=== PATIENT | male | born 2000 | race Caucasian/White ===

== ENCOUNTER 2022-08-07 13:27 | Emergency (ER) | payer OTHER, SELFPAY ==
[2022-08-07 13:28] VITALS: BP 118/70; PULSE 44; RESP 13; TEMP 35.8; O2SAT 99; BMI 21.2
--- NOTE | 2022-08-07 13:59 | EKG12_ITS ---
Test Reason : SYNCOPE Blood Pressure : / mmHG Vent. Rate : 042 BPM Atrial Rate : 042 BPM P-R Int : 174 ms QRS Dur : 102 ms QT Int : 440 ms P-R-T Axes : 057 076 070 degrees QTc Int : 367 ms Marked sinus bradycardia Early repolarization Abnormal ECG Confirmed by SALLY MEEK, SANDY ([id number]), editorial cartoonist BRIDGET MOREL ([id number]) on 08/09/2022 11:46:33 AM Referred By: Confirmed By:SANDY ZAVALA MD
[2022-08-07] MEDS: 0.9% Normal Saline 1,000 ML 1000 ML IV (14:13)
[2022-08-07 14:23] LABS: Absolute Lymphocyte Count 1.03 X10^3/uL (0.83-4.51); Absolute Neutrophil Count 2.8 X10^3/uL (2.0-7.7); Basophil# 0.01 X10^3/uL; Basophil% 0.2 % (0-1); Eosinophil# 0.01 X10^3/uL; Eosinophils% 0.2 % (0-5); Hematocrit 42.7 % (40-54); Hemoglobin 14.7 g/dL (13.0-16.5); Lymphocyte # 1.03 X10^3/ul (0.83-4.51); Lymphocyte % 24.6 % (19-41); Mean Corp Hgb Conc 34.4 g/dL (32-36); Mean Corpuscular Hgb 28.6 pg (27.0-32.0); Mean Corpuscular Volume 83.1 fL (80-94); Mean Platelet Vol. 9.4 fl (6.2-12.0); Monocyte# 0.38 X10^3/uL; Monocyte% 9.1 % (0-10); NRBC Flagged by Analyzer 0 % (0-5); Neutrophil # 2.75 X10^3/uL (2.7-7.7); Neutrophil % 65.7 % (47-70); Platelet Count 126 K/mm3 (150-450); RBC Distribution Width CV 11.9 % (11.6-14.6); RBC Distribution Width SD 36.4 fl (35.1-43.9); Red Blood Count 5.14 M/mm3 (4.6-6.2); White Blood Count 4.2 K/mm3 (4.4-11.0)
[2022-08-07 14:44] VITALS: BP 125/70; PULSE 45; RESP 16; O2SAT 100
[2022-08-07 14:44] LABS: Anion Gap 6 (5-15); BUN 13 mg/dL (7-18); BUN/Creat Ratio 18.6 RATIO (10-20); Calcium,Total 9.5 mg/dL (8.5-10.1); Chloride 107 mmol/L (98-107); EST Glomerular Filtration Rate 150 mL/min (>60); Est Glom Filt Rate - Afr Amer 182 mL/min (>60); Glucose 104 mg/dL (74-106); Sodium Level 141 mmol/L (136-145); Thyroid Stim Hormone (TSH) 1.55 uIU/mL (0.358-3.74); Troponin-I HS 5 pg/mL (3.0-78.0)
--- NOTE | 2022-08-07 15:12 | RAD_ITS ---
STUDY: X-RAY CHEST REASON FOR EXAM: Male, 21 years old. Syncope TECHNIQUE: Frontal and lateral views of the chest. COMPARISON: None. FINDINGS: The lungs are clear and expanded. There is no demonstrated pleural abnormality. Normal size heart. Normal mediastinum and naya. Normal visualized pulmonary arteries. Normal visualized aortic arch and descending thoracic aorta. Normal visualized thoracic spine. Normal visualized ribs, clavicles, and shoulders. There is no demonstrated abnormality of the visualized soft tissue structures of the upper abdomen. RAD/Chest PA and Lateral IMPRESSION: Normal x-ray examination of the chest. Electronically Signed: Precious Carty MD at 15:46 EDT ,
[2022-08-07 15:49] LABS: Amphetamine Urine VISTA NEGATIVE (<1000 ng/mL); Barbiturate Urine VISTA NEGATIVE (< 200 ng/mL); Benzodiazepine Urine VISTA NEGATIVE (< 200 ng/mL); Cocaine Urine VISTA NEGATIVE (< 300 ng/mL); Ecstacy Urine VISTA NEGATIVE (< 500 ng/mL); Methadone Urine VISTA NEGATIVE (< 300 ng/mL); PCP Urine VISTA NEGATIVE (< 25 ng/mL); THC Urine VISTA POSITIVE (< 50 ng/mL); Vista UDS pH Range 6
[2022-08-07 15:51] VITALS: BP 130/65; PULSE 53; RESP 16; O2SAT 98
[2022-08-07 15:53] VITALS: BP 122/83; BP 130/65; BP 132/79; PULSE 53; PULSE 62
--- NOTE | 2022-08-07 17:12 | EDS_ITS ---
HPI History of Present Illness Chief Complaint: Syncope Narrative Narrative: Patient is a 21-year-old male with remote history of syncope presenting after an episode of syncope at urgent care. Patient wondered to get his ear checked out. He has had a clogged sensation in his right ear for the past 4 to 5 days with decreased hearing. While he was in the office he had his blood pressure checked. He suddenly felt incredibly hot and then woke up with everybody looking over him. Apparently had 2 episodes of syncope. The second episode was when they try to set him up again. He felt dizzy at the time. Patient was bradycardic and sent to the ER for further evaluation. Patient currently denies any chest pain, shortness of breath or difficulty breathing. He feels fine but is worried he is going to pass out again. Denies any family history of any cardiac issues, syncope or at a young age. PFS PFS Medical History no medical history Home Medications NK 08/07/22 [History Last Taken Unknown] Allergy/AdvReac Type Severity Reaction Status Date / Time amoxicillin Allergy Rash Verified 08/07/22 13:28 Surgical History no surgical history Social History Smoking Status: Never smoker ROS ROS ED Constitutional Constitutional ED: Reports other Details: Syncope ; Denies chills or fever(s) ENT ENT ED: Reports other Details: Decreased hearing in right ear ; Denies ear pain, rhinorrhea or sore throat Cardiovascular Cardiovascular: Denies chest pain, palpitations or racing heartbeat Respiratory/Chest Respiratory/Chest: Denies cough or dyspnea Gastrointestinal Gastrointestinal: Denies abdominal pain, nausea or vomiting Musculoskeletal Musculoskeletal: Denies arthralgias or myalgias Integumentary Denies rash Neurologic Neurologic: Denies headache(s) or weakness Psychiatric Psychiatric: Denies anxiety or depression Hematologic/Lymphatic Hematologic/Lymphatic: Denies easy bleeding or easy bruising EXAM Physical Exam Const Vital Signs: 08/07/22 13:28 08/07/22 13:30 08/07/22 14:44 Temperature 96.5 F L Temperature Source Temporal Pulse Rate 44 L 45 L Pulse Rate [Lying] Pulse Rate [Standing (for 1 minute prior to obtaining)] Respiratory Rate 13 16 Respiratory Effort Normal Non-Labored Respiratory Pattern Normal Blood Pressure 118/70 125/70 H Blood Pressure [Lying] Blood Pressure [Sitting (for 1 minute prior to obtaining)] Blood Pressure [Standing (for 1 minute prior to obtaining)] Blood Pressure Mean 86 88 Blood Pressure Mean [Lying] Blood Pressure Mean [Sitting (for 1 minute prior to obtaining)] Blood Pressure Mean [Standing (for 1 minute prior to obtaining)] Pulse Ox 99 100 Oxygen Delivery Method Room Air Room Air 08/07/22 15:51 08/07/22 15:53 08/07/22 17:22 Temperature Temperature Source Pulse Rate 53 L 54 L Pulse Rate [Lying] 53 L Pulse Rate [Standing (for 1 minute prior to obtaining)] 62 Respiratory Rate 16 14 Respiratory Effort Respiratory Pattern Blood Pressure 130/65 H Blood Pressure [Lying] 130/65 H Blood Pressure [Sitting (for 1 minute prior to obtaining)] 122/83 H Blood Pressure [Standing (for 1 minute prior to obtaining)] 132/79 H Blood Pressure Mean 86 Blood Pressure Mean [Lying] 86 Blood Pressure Mean [Sitting (for 1 minute prior to obtaining)] 96 Blood Pressure Mean [Standing (for 1 minute prior to obtaining)] 96 Pulse Ox 98 98 Oxygen Delivery Method Room Air 08/07/22 17:23 Temperature Temperature Source Pulse Rate Pulse Rate [Lying] Pulse Rate [Standing (for 1 minute prior to obtaining)] Respiratory Rate Respiratory Effort Respiratory Pattern Blood Pressure Blood Pressure [Lying] Blood Pressure [Sitting (for 1 minute prior to obtaining)] Blood Pressure [Standing (for 1 minute prior to obtaining)] Blood Pressure Mean Blood Pressure Mean [Lying] Blood Pressure Mean [Sitting (for 1 minute prior to obtaining)] Blood Pressure Mean [Standing (for 1 minute prior to obtaining)] Pulse Ox 99 Oxygen Delivery Method Room Air Positive well nourished and well developed General Appearance ED: well developed and NAD HEENT Reports TM's clear and moist mucous membranes HEENT Narrative: Cerumen impaction of the right tympanic membrane Negative for trauma Tympanic Membrane ED: Yes TM's clear left Eyes PERRL and EOMs intact bilaterally Neck supple and no JVD Chest Wall inspection of chest normal and palpation of chest normal Resp normal respiratory effort and clear to auscultation bilaterally Cardio regular rhythm and no murmurs Rate: bradycardia GI normal to inspection, nondistended, normoactive bowel sounds and non-tender Back/Spine no CVA tenderness Extremity normal to inspection General Extremety ED: Negative for edema or tenderness General Extremity: Negative for edema Neuro oriented x3, CN's II-XII intact bilaterally and no sensory deficits noted Motor Exam: strength 5/5 throughout; Negative for general weakness Psych mental status grossly normal Mood & Affect: anxious Skin no rashes or lesions noted and no wounds MDM MDM MDM Narrative Medical decision making narrative: Patient evaluated after an episode of syncope at urgent care. He is bradycardic . His vital signs are otherwise normal. His orthostatics are negative. The syncopal episode itself sounds like a vasovagal episode. Patient is given IV fluids in the ER. CBC, BMP, troponin, TSH and urine drug are obtained. Remarkable only for positive cannabis in the urine. Two-view chest x-ray interpreted by myself as well as radiology does not show any acute process. EKG shows sinus bradycardia but no signs of block. Given that he is not hypotensive or currently symptomatic with his bradycardia I do not think that was the actual cause of his syncopal episode. Is given outpatient follow-up with cardiology for the bradycardia. Patient mother agreeable this plan of care. Patient does feel better after receiving IV fluids. Irrigation performed for cerumen impaction of the right ear with resolution of his hearing changes. Lab Data Labs: Laboratory Results - last 24 hr 08/07/22 08/07/22 08/07/22 14:15 14:15 15:20 WBC 4.2 L RBC 5.14 Hgb 14.7 Hct 42.7 MCV 83.1 MCH 28.6 MCHC 34.4 RDW Std Deviation 36.4 RDW Coeff of Karla 11.9 Plt Count 126 L MPV 9.4 Immature Gran % (Auto) 0.200 Neut % (Auto) 65.7 Lymph % (Auto) 24.6 [place] % (Auto) 9.1 Eos % (Auto) 0.2 Baso % (Auto) 0.2 Absolute Neuts (auto) 2.8 Absolute Lymphs (auto) 1.03 Nucleated RBC % 0 Sodium 141 Potassium 4.0 Chloride 107 Carbon Dioxide 28.0 Anion Gap 6 BUN 13 Creatinine 0.70 Estim Creat Clear Calc 158.90 Est GFR (MDRD) Af Amer 182 Est GFR (MDRD) Non-Af 150 BUN/Creatinine Ratio 18.6 Glucose 104 Calcium 9.5 Troponin I High Sens 5 TSH 1.55 Urine Opiates Screen NEGATIVE Urine Methadone Screen NEGATIVE Ur Barbiturates Screen NEGATIVE Ur Phencyclidine Scrn NEGATIVE Ur Amphetamines Screen NEGATIVE MDMA (Ecstasy) Screen NEGATIVE U Benzodiazepines Scrn NEGATIVE Urine Cocaine Screen NEGATIVE U Cannabinoids Screen POSITIVE H Ur Drug Screen Comment Radiography Chest X-Ray - ED: 2 View, Read by ED Physician, Read by Radiologist and No Acute Disease Diagnostic Testing: Clinical Impression(s) from Imaging Studies Chest X-Ray 08/07/22 15:12 IMPRESSION: Normal x-ray examination of the chest. Electronically Signed: Precious Carty MD at 15:46 EDT , Rhythm Strip Rhythm Strip: Sinus bradycardia Rate: 42 Ectopy: None EKG Initial EKG: Attestation: I personally reviewed and interpreted this EKG as follows: Interpretation: Sinus Bradycardia Comments: Sinus bradycardia rate of 42 bpm Normal axis Normal intervals Normal ST segments Early repolarization Discharge Plan Triage Chief Complaint: Syncope ED Provider: Soledad Alvarez Dx/Rx/DC Orders Clinical Impression: Syncope and collapse, Bradycardia, Cerumen impaction Instructions: ED Bradycardia, ED Fainting, Vagal Reaction Prescriptions: No Action NK Primary Care Provider: Care Physician,No Primary Referrals: Aquilino Donovan MD [Med Staff - Active Staff] - Care Physician,No Primary [Primary Care Provider] - Activity Restrictions/Additional Instructions: Drink lots of fluids. Disposition Disposition: Home, Self Care Discharge Date/Time: 08/07/22 17:23
[2022-08-07 17:22] VITALS: PULSE 54; RESP 14; O2SAT 98
[2022-08-07 17:23] VITALS: O2SAT 99
== END 2022-08-07 17:23 | disposition home or self-care (01) ==
PROVIDERS: Emergency Provider Emergency Medicine; Visit Provider Emergency Medicine
DX: R55 Syncope and collapse (principal); H61.20 Impacted cerumen, unspecified ear; R00.1 Bradycardia, unspecified
CPT/HCPCS: 71046; 80048; 80307; 84443; 84484; 85025; 93005; 96360; 96361; 99285; J7030; A4216

== ENCOUNTER → 2022-10-13 | Outpatient (CLI) | payer OTHER, SELFPAY ==
--- NOTE | 2022-10-13 07:55 | ECHOD_ITS ---
Reason For Study: SYNCOPE Procedure This was a 2D Doppler, Color Flow transthoracic echocardiogram. Exam performed in department. Left Ventricle Normal LV size. Left ventricular systolic function is normal. The estimated ejection fraction is 55 %. Normal diastology for age. No regional wall motion abnormalities noted. Right Ventricle Normal RV size. Normal systolic function. Atria Normal left atrium. Normal right atrium. Mitral Valve Normal mitral valve. Tricuspid Valve Normal tricuspid valve. Aortic Valve Trisinus/trileaflet aortic valve. Mild focal aortic valve thickening. Pulmonic Valve Normal pulmonic valve. Great Vessels Normal aortic root. The pulmonary artery is normal size. Normal inferior vena cava. Pericardium/Pleural No pericardial effusion. MMode/2D Measurements & Calculations LVIDd: 5.0 cm IVSd: 0.52 cm LAV(MOD-bp): 64.3 ml LVIDs: 4.0 cm LVPWd: 0.72 cm LAV(MOD-bp) Indexed: 35.8 ml/m2 RVDd: 2.8 cm FS: 19.8 % LAV(MOD-sp2): 60.3 ml LAV(MOD-sp4): 52.8 ml SV(MOD-sp4): 63.1 ml SV(sp4-el): 67.5 ml LVAd ap4: 35.4 cm2 LVLd ap4: 8.9 cm EDV(MOD-sp4): 115.4 ml EDV(sp4-el): 119.1 ml LVAs ap4: 20.8 cm2 LVLs ap4: 7.1 cm ESV(MOD-sp4): 52.3 ml ESV(sp4-el): 51.6 ml EF(MOD-sp4): 54.7 % EF(sp4-el): 56.6 % LA A4 area: 19.8 cm2 LA dimension(2D): 3.4 cm RA A4 area: 11.6 cm2 Time Measurements MV dec time: 0.20 sec Doppler Measurements & Calculations MV E max juan: 93.8 cm/sec Lat Peak E' Juan: 21.8 cm/sec Med Peak E' Juan: 17.3 cm/sec MV A max juan: 40.7 cm/sec E/E' lat: 4.3 E/E' med: 5.4 MV E/A: 2.3 MV V2 max: 97.0 cm/sec MV dec slope: 498.6 cm/sec2 Ao V2 max: 123.0 cm/sec MV max P.8 mmHg Ao max P.1 mmHg MV V2 mean: 46.6 cm/sec Ao V2 mean: 88.6 cm/sec MV mean P.2 mmHg Ao mean P.5 mmHg MV V2 VTI: 33.0 cm Ao V2 VTI: 26.5 cm AV (velocity ratio): 0.80 LV V1 max: 98.9 cm/sec PA V2 max: 111.9 cm/sec LV V1 max P.9 mmHg PA V2 mean: 83.9 cm/sec LV V1 mean P.5 mmHg LV V1 mean: 74.3 cm/sec LV V1 VTI: 21.0 cm ECHO/Echo Complete Interpretation Summary Normal LV size. Left ventricular systolic function is normal. The estimated ejection fraction is 55 %. Mild focal aortic valve thickening. Ordering Physician: Prashanth Benz Referring Physician: Prashanth Benz Performed By: Verónica Smith RCS
== END | disposition home or self-care (01) ==
PROVIDERS: Referring Provider Internal Medicine Cardiovascular Disease; Visit Provider Internal Medicine Cardiovascular Disease
DX: R55 Syncope and collapse (principal); I35.8 Other nonrheumatic aortic valve disorders
CPT/HCPCS: 93306